=== PATIENT | male | born 1990 | race Caucasian/White ===

== ENCOUNTER 2018-05-04 16:21 | Emergency (ER) | payer OTHER ==
--- NOTE | 2018-05-04 17:07 | EDM.PDOC ---
ED HPI GENERAL MEDICAL PROBLEM - General Chief Complaint: General Stated Complaint: HEAT EXHAUSTION Time Seen by Provider: 05/04/18 16:25 Source of Information: Reports: Patient History Limitations: Reports: No Limitations - History of Present Illness INITIAL COMMENTS - FREE TEXT/NARRATIVE: 27 year old male presenting with lightheadedness, dizziness and headache secondary to what he believes is heat exhaustion. Patient states he woke up around 3pm, and proceeded to go to work by walking. He states he walked for about 45 min and started to have symptoms as described above. Patient denies any N/V or any syncopal episodes. Patient denies any fevers, myalgia. Patient does believe he is dehydrated. He states he did not intake any fluids today. Headache Pain Score (Numeric/FACES): 4 - Related Data Allergies Allergy/AdvReac Type Severity Reaction Status Date / Time sertraline HCl [From Zoloft] Allergy Abdominal Verified 05/04/18 17:12 Pain Home Meds: Home Meds . [No Known Home Meds] 09/13/16 [History] Past Medical History - Past Health History Medical/Surgical History: Denies Medical/Surgical History - Infectious Disease History Infectious Disease History: Reports: Chicken Pox Social & Family History - Family History Family Medical History: Noncontributory - Caffeine Use Caffeine Use: Reports: Energy Drinks ED ROS GENERAL - Review of Systems Review Of Systems: ROS reveals no pertinent complaints other than HPI. ED EXAM, GENERAL - Physical Exam Exam: See Below Exam Limited By: No Limitations General Appearance: Alert, WD/WN, No Apparent Distress Ears: Normal External Exam Nose: Normal Inspection Throat/Mouth: Normal Inspection, Other (mild dryness of lips and oropharynx) Head: Atraumatic, Normocephalic Neck: Normal Inspection Respiratory/Chest: No Respiratory Distress, Lungs Clear, Normal Breath Sounds Cardiovascular: Normal Peripheral Pulses, Regular Rate, Rhythm GI/Abdominal: Normal Bowel Sounds, Soft, Non-Tender Back Exam: Normal Inspection Extremities: Normal Inspection, Normal Range of Motion, Non-Tender, No Pedal Edema, Normal Capillary Refill Psychiatric: Normal Affect, Normal Mood Skin Exam: Warm, Dry, Intact, Normal Color Lymphatic: No Adenopathy Course - Vital Signs Last Recorded V/S: Last Vital Signs Temp 36.9 C 05/04/18 17:09 Pulse 72 05/04/18 17:09 Resp 12 05/04/18 17:09 BP 124/77 05/04/18 17:09 Pulse Ox 97 05/04/18 17:09 Orthostatic Blood Pressure [ 122/76 Standing] Orthostatic Blood Pressure [ 118/64 Sitting] Orthostatic Blood Pressure [ 109/60 Supine] - Orders/Labs/Meds Orders: Active Orders 24 hr Category Date Time Status Orthostatic Vital Signs [RC] ASDIRECTED Care 05/04/18 17:23 Active UA W/MICROSCOPIC [URIN] Stat Lab 05/04/18 17:18 Ordered Sodium Chloride 0.9% [Saline Flush] Med 05/04/18 17:26 Active 10 ml FLUSH ASDIRECTED PRN Sodium Chloride 0.9% [Saline Flush] Med 05/04/18 17:24 Active 2.5 ml FLUSH ASDIRECTED PRN Medication Orders Sodium Chloride (Saline Flush) 2.5 ml FLUSH ASDIRECTED PRN PRN Reason: Keep Vein Open Last Admin: 05/04/18 17:30 Dose: 2.5 ml Sodium Chloride (Saline Flush) 10 ml FLUSH ASDIRECTED PRN PRN Reason: Keep Vein Open Last Admin: 05/04/18 17:30 Dose: 10 ml Labs: Laboratory Tests 05/04/18 05/04/18 05/04/18 Range/Units 17:18 17:26 17:26 WBC 8.71 (4.0-11.0) K/uL RBC 5.06 (4.50-5.90) M/uL Hgb 16.2 (13.0-17.0) g/dL Hct 45.5 (38.0-50.0) % MCV 89.9 (80.0-98.0) fL MCH 32.0 (27.0-32.0) pg MCHC 35.6 (31.0-37.0) g/dL RDW Std Deviation 40.2 (28.0-62.0) fl RDW Coeff of Aminta 12 (11.0-15.0) % Plt Count 221 (150-400) K/uL MPV 10.80 (7.40-12.00) fL Neut % (Auto) 59.0 (48.0-80.0) % Lymph % (Auto) 28.2 (16.0-40.0) % [place] % (Auto) 10.3 (0.0-15.0) % Eos % (Auto) 2.0 (0.0-7.0) % Baso % (Auto) 0.5 (0.0-1.5) % Neut # (Auto) 5.1 (1.4-5.7) K/uL Lymph # (Auto) 2.5 H (0.6-2.4) K/uL Summers # (Auto) 0.9 H (0.0-0.8) K/uL Eos # (Auto) 0.2 (0.0-0.7) K/uL Baso # (Auto) 0.0 (0.0-0.1) K/uL Nucleated RBC % 0.0 /100WBC Nucleated RBCs # 0 K/uL Sodium 140 (136-148) mmol/L Potassium 4.1 (3.5-5.1) mmol/L Chloride 105 (98-107) mmol/L Carbon Dioxide 25.8 (21.0-32.0) mmol/L BUN 11 (7.0-18.0) mg/dL Creatinine 1.0 (0.8-1.3) mg/dL Est Cr Clr Drug Dosing 97.85 mL/min Estimated GFR (MDRD) > 60.0 ml/min Glucose 99 (74-106) mg/dL Calcium 9.0 (8.5-10.1) mg/dL Total Bilirubin 0.5 (0.2-1.0) mg/dL AST 16 (15-37) IU/L ALT 19 (14-63) IU/L Alkaline Phosphatase 58 (46-116) U/L Creatine Kinase 129 (26-308) U/L Total Protein 7.7 (6.4-8.2) g/dL Albumin 4.6 (3.4-5.0) g/dL Globulin 3.1 (2.0-3.5) g/dL Albumin/Globulin Ratio 1.5 (1.3-2.8) Urine Color DARK YELLOW Urine Appearance CLEAR Urine pH 6.0 (5.0-8.0) Ur Specific [place] >= 1.030 (1.001-1.035) Urine Protein TRACE (NEGATIVE) mg/dL Urine Glucose (UA) NEGATIVE (NEGATIVE) mg/dL Urine Ketones NEGATIVE (NEGATIVE) mg/dL Urine Occult Blood TRACE-INTACT (NEGATIVE) Urine Nitrite NEGATIVE (NEGATIVE) Urine Bilirubin SMALL H (NEGATIVE) Urine Urobilinogen 0.2 (<2.0) EU/dL Ur Leukocyte Esterase NEGATIVE (NEGATIVE) Urine RBC 0-2 (0-2/HPF) Urine WBC 0-1 (0-5/HPF) Ur Epithelial Cells RARE (NONE-FEW) Urine Bacteria RARE (NEGATIVE) Urine Mucus LIGHT (NONE-MOD) Meds: Medications Generic Name Dose Route Start Last Admin Trade Name Freq PRN Reason Stop Dose Admin Sodium Chloride 2.5 ml 05/04/18 17:24 05/04/18 17:30 Saline Flush FLUSH 2.5 ml ASDIRECTED PRN Administration Keep Vein Open Sodium Chloride 10 ml 05/04/18 17:26 05/04/18 17:30 Saline Flush FLUSH 10 ml ASDIRECTED PRN Administration Keep Vein Open Discontinued Medications Generic Name Dose Route Start Last Admin Trade Name Freq PRN Reason Stop Dose Admin Sodium Chloride 1,000 mls @ 999 mls/hr 05/04/18 17:20 05/04/18 17:29 Normal Saline IV 05/04/18 18:20 999 mls/hr STAT ONE Administration - Re-Assessments/Exams Free Text/Narrative Re-Assessment/Exam: 05/04/18 18:47 UA indicated dehydration as specific gravity was elevated, likely etiology is dehydration. Rest of labs are within normal limits. Patient can be discharged after IV fluids have finished. Departure - Departure Time of Disposition: 18:30 Disposition: Home, Self-Care 01 Condition: Good Clinical Impression: Heat exhaustion, Dehydration - Discharge Information *PRESCRIPTION DRUG MONITORING PROGRAM REVIEWED*: Not Applicable *COPY OF PRESCRIPTION DRUG MONITORING REPORT IN PATIENT SUPRIYA: Not Applicable Instructions: Heat Exhaustion Information, Dehydration, Adult, [id number], Rehydration, Adult Referrals: PCP,None [Primary Care Provider] - (follow up with PCP in 2-3 days) Forms: ED Department Discharge Additional Instructions: Patient can be discharged after IV fluids have been finished. - Problem List & Annotations (1) Heat exhaustion SNOMED Code(s): 12240926 Code(s): T67.5XXA - HEAT EXHAUSTION, UNSPECIFIED, INITIAL ENCOUNTER Status : Acute Current Visit: Yes (2) Dehydration SNOMED Code(s): 17773099 Code(s): E86.0 - DEHYDRATION Status: Acute Current Visit: No - Problem List Review Problem List Initiated/Reviewed/Updated: Yes - My Orders Last 24 Hours: My Active Orders 05/04/18 17:18 UA W/MICROSCOPIC [URIN] Stat 05/04/18 17:23 Orthostatic Vital Signs [RC] ASDIRECTED 05/04/18 17:24 Sodium Chloride 0.9% [Saline Flush] 2.5 ml FLUSH ASDIRECTED PRN 05/04/18 17:26 Sodium Chloride 0.9% [Saline Flush] 10 ml FLUSH ASDIRECTED PRN - Assessment/Plan Last 24 Hours: My Active Orders 05/04/18 17:18 UA W/MICROSCOPIC [URIN] Stat 05/04/18 17:23 Orthostatic Vital Signs [RC] ASDIRECTED 05/04/18 17:24 Sodium Chloride 0.9% [Saline Flush] 2.5 ml FLUSH ASDIRECTED PRN 05/04/18 17:26 Sodium Chloride 0.9% [Saline Flush] 10 ml FLUSH ASDIRECTED PRN Assessment:: 27 year old male presenting with lightheadedness, dizziness and headache secondary to heat exhaustion; most likely etiology is dehydration. Patient will also need to have rhabdomyolysis ruled out. Plan: CBC, CMP, CK, UA for assessment of heat exhaustion. IV NS 1 L bolus for rehydration.
[2018-05-04] MEDS ORDERED: Sodium Chloride 0.9% 1,000 ML IV ONE (17:20)
[2018-05-04] MEDS ORDERED: Sodium Chloride 0.9% 2.5 ML Syringe FLUSH PRN (17:24)
[2018-05-04] MEDS ORDERED: Sodium Chloride 0.9% 10 ML Syringe FLUSH PRN (17:26)
--- NOTE | 2018-05-04 17:47 | PCM.SN ---
- Free Text/Narrative Note: This is Dr. Benoit dictating addendum note as the supervising physician on this case. I agree with history and physical in a personally evaluated the patient. Clinically he does not look dehydrated and has tacky mucosa and he doesn't feel nauseated chest pain shortness of breath or lightheaded he just feels very dry and drain. We will monitor his laboratory testing and give him IV fluids. He does state he was outside for most of the day which may have triggered the symptoms. We will disposition the patient appropriately pending those test results.
[2018-05-04 17:58] LABS: CHLORIDE,CL 105 mmol/L (98-107); SODIUM,NA 140 mmol/L (136-148)
[2018-05-04 19:05] VITALS: BP 124/68
== END 2018-05-04 19:00 | disposition home or self-care (01) ==
LOC: MW.ED 16:21
DX: T67.5XXA Heat exhaustion, unspecified, initial encounter (principal); E86.0 Dehydration; Z88.8 Allergy status to other drugs, medicaments and biological substances; X30.XXXA Exposure to excessive natural heat, initial encounter
CPT/HCPCS: 36415; 80053; 81001; 82550; 85025; 96360; 99283; J7040

== ENCOUNTER 2018-05-10 18:41 | Emergency (ER) | payer OTHER ==
[2018-05-10] MEDS ORDERED: Sodium Chloride 0.9% 10 ML Syringe FLUSH PRN (19:09)
[2018-05-10] MEDS ORDERED: Sodium Chloride 0.9% 2.5 ML Syringe FLUSH PRN (19:09)
[2018-05-10] MEDS ORDERED: Ondansetron 4 MG/2 ML SDV IVPUSH ONE (19:10)
[2018-05-10] MEDS ORDERED: Sodium Chloride 0.9% 1,000 ML IV ONE (19:10)
--- NOTE | 2018-05-10 19:15 | EDM.PDOC ---
ED HPI GENERAL MEDICAL PROBLEM - General Chief Complaint: Syncope Time Seen by Provider: 05/10/18 19:00 - History of Present Illness INITIAL COMMENTS - FREE TEXT/NARRATIVE: HISTORY AND PHYSICAL: History of present illness: The patient is a 27-year-old male with no stated medical history who presents after a syncopal event, brief, while he was at work tonight. The patient was seen here in the emergency department on May 04 where he was out in the hot weather walking and not hydrating and had sensations of feeling like he might pass out but he did not pass out. He was evaluated with labs and rehydrated and was discharged home and referred to the clinic. He did not make a clinic follow-up appointment. The patient tells me that last evening he didn' t feel quite right just felt run down and went to sleep and woke up today and had a normal morning. He got ready for work and went to work and says he has been pushing fluids. 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 Then he felt like his legs were weak and the next thing he recalls is being on the ground. The episode was brief and there was no stated abnormal motor activity. The patient says he has a little tenderness to the right cheek but no complaints of headache neck pain back pain extremity complaints facial pain chest pain or shortness of breath. He says he still has nausea but has not had vomiting. He says he is otherwise been eating and drinking normally. He currently complains of no pain anywhere as a result of the syncope and fall. He denies any focal weakness or tingling. He says this has never happened before. Review of systems: As per history of present illness and below otherwise all systems reviewed and negative. Past medical history: As per history of present illness and as reviewed below otherwise noncontributory. Surgical history: As per history of present illness and as reviewed below otherwise noncontributory. Social history: No reported history of drug or alcohol abuse. Family history: As per history of present illness and as reviewed below otherwise noncontributory. Physical exam: General: Well-developed well-nourished thin man who is nontoxic and vital signs were noted by me. He moves easily in the ED without distress. HEENT: Atraumatic except for a small area of minimal soft tissue swelling at the right zygoma without palpable bony deformity, normocephalic, pupils reactive , negative for conjunctival pallor or scleral icterus, mucous membranes moist, throat clear, neck supple, nontender, trachea midline. There are no palpable facial bony deformities, teeth and bite are intact, there are no midline step- offs tenderness defects of the cervical spine and no scalp tenderness defects or deformities. There is no cervical adenopathy or rigidity. Lungs: Clear to auscultation, breath sounds equal bilaterally, chest nontender. Heart: S1S2, regular rate and rhythm no overt murmurs Abdomen: Soft, nondistended, nontender. Negative for masses or hepatosplenomegaly. Negative for costovertebral tenderness. Normoactive bowel sounds Pelvis: Stable nontender. Genitourinary: Deferred. Rectal: Deferred. Extremities: Atraumatic full range of motion without defects or deficits, negative for cords or calf pain. Neurovascular unremarkable. Neuro: Awake, alert, oriented. Cranial nerves II through XII unremarkable. Cerebellum unremarkable. Motor and sensory unremarkable throughout. Exam nonfocal. Back: There are no midline step-offs tenderness defects of the thoracic or lumbar spine no posterior rib or posterior pelvis tenderness and no visible evidence of any soft tissue injuries such as erythema ecchymosis or abrasions. Diagnostics: EKG CBC CMP troponin TSH alcohol level UA UDS magnesium level CPK CT scan of the head chest x-ray orthostatic vitals Therapeutics: IV O2 monitor IV fluids Zofran Patient looks and feels much improved. He has had no symptomatology here. We have discussed testing results and I have advised him for observation admission and he declines at this time. He would prefer to follow-up as an outpatient and do an outpatient Holter and any other testing that needs to be performed. I've advised him of my concerns and of the risks and he accepts those. He said he will return if the symptoms return. Impression: Syncopal event Definitive disposition and diagnosis as appropriate pending reevaluation and review of above. - Related Data Allergies Allergy/AdvReac Type Severity Reaction Status Date / Time sertraline HCl [From Zoloft] Allergy Abdominal Verified 05/04/18 17:12 Pain Home Meds: Home Meds . [No Known Home Meds] 09/13/16 [History] Past Medical History - Past Health History Medical/Surgical History: Denies Medical/Surgical History - Infectious Disease History Infectious Disease History: Reports: Chicken Pox Social & Family History - Family History Family Medical History: Noncontributory - Tobacco Use Smoking Status *Q: Current Every Day Smoker Years of Tobacco use: 14 Packs/Tins Daily: 0.5 - Caffeine Use Caffeine Use: Reports: Energy Drinks ED ROS GENERAL - Review of Systems Review Of Systems: ROS reveals no pertinent complaints other than HPI. ED EXAM, GENERAL - Physical Exam Exam: See Below (see dictation) Course - Vital Signs Last Recorded V/S: Last Vital Signs Temp 36.5 C 05/10/18 20:32 Pulse 55 L 05/10/18 20:32 Resp 16 05/10/18 20:32 BP 111/68 05/10/18 20:32 Pulse Ox 100 05/10/18 20:32 Orthostatic Blood Pressure [ 115/71 Standing] Orthostatic Blood Pressure [ 110/65 Sitting] Orthostatic Blood Pressure [ 111/68 Supine] - Orders/Labs/Meds Orders: Active Orders 24 hr Category Date Time Status Cardiac Monitoring [RC] . DIRECTED Care 05/10/18 19:09 Active EKG Documentation Completion [RC] STAT Care 05/10/18 19:09 Active Orthostatic Vital Signs [RC] ASDIRECTED Care 05/10/18 19:09 Active Oxygen Therapy, ED [RC] ASDIRECTED Care 05/10/18 19:09 Active Pulse Oximetry [RC] ASDIRECTED Care 05/10/18 19:09 Active Chest 1V Frontal [CR] Stat Exams 05/10/18 19:09 Taken Head wo Cont [CT] Stat Exams 05/10/18 19:09 Taken DRUG SCREEN, URINE [URCHEM] Stat Lab 05/10/18 20:06 Ordered UA W/MICROSCOPIC [URIN] Stat Lab 05/10/18 20:05 Ordered Sodium Chloride 0.9% [Saline Flush] Med 05/10/18 19:09 Active 10 ml FLUSH ASDIRECTED PRN Sodium Chloride 0.9% [Saline Flush] Med 05/10/18 19:09 Active 2.5 ml FLUSH ASDIRECTED PRN Saline Lock Insert [OM.PC] Stat Oth 05/10/18 19:09 Ordered Medication Orders Sodium Chloride (Saline Flush) 10 ml FLUSH ASDIRECTED PRN PRN Reason: Keep Vein Open Sodium Chloride (Saline Flush) 2.5 ml FLUSH ASDIRECTED PRN PRN Reason: Keep Vein Open Labs: Laboratory Tests 05/10/18 05/10/18 05/10/18 Range/Units 19:19 19:19 20:05 WBC 8.93 (4.0-11.0) K/uL RBC 4.75 (4.50-5.90) M/uL Hgb 14.8 (13.0-17.0) g/dL Hct 43.1 (38.0-50.0) % MCV 90.7 (80.0-98.0) fL MCH 31.2 (27.0-32.0) pg MCHC 34.3 (31.0-37.0) g/dL RDW Std Deviation 40.7 (28.0-62.0) fl RDW Coeff of Aminta 12 (11.0-15.0) % Plt Count 221 (150-400) K/uL MPV 10.50 (7.40-12.00) fL Neut % (Auto) 64.9 (48.0-80.0) % Lymph % (Auto) 24.3 (16.0-40.0) % [place] % (Auto) 8.5 (0.0-15.0) % Eos % (Auto) 2.0 (0.0-7.0) % Baso % (Auto) 0.3 (0.0-1.5) % Neut # (Auto) 5.8 H (1.4-5.7) K/uL Lymph # (Auto) 2.2 (0.6-2.4) K/uL [place] # (Auto) 0.8 (0.0-0.8) K/uL Eos # (Auto) 0.2 (0.0-0.7) K/uL Baso # (Auto) 0.0 (0.0-0.1) K/uL Nucleated RBC % 0.0 /100WBC Nucleated RBCs # 0 K/uL Sodium 138 (136-148) mmol/L Potassium 4.1 (3.5-5.1) mmol/L Chloride 103 (98-107) mmol/L Carbon Dioxide 27.9 (21.0-32.0) mmol/L BUN 13 (7.0-18.0) mg/dL Creatinine 1.0 (0.8-1.3) mg/dL Est Cr Clr Drug Dosing 86.18 mL/min Estimated GFR (MDRD) > 60.0 ml/min Glucose 87 (74-106) mg/dL Calcium 8.4 L (8.5-10.1) mg/dL Magnesium 2.1 (1.8-2.4) mg/dL Total Bilirubin 0.3 (0.2-1.0) mg/dL AST 15 (15-37) IU/L ALT 17 (14-63) IU/L Alkaline Phosphatase 50 (46-116) U/L Creatine Kinase 95 (26-308) U/L Troponin I < 0.050 (0.000-0.056) ng/mL Total Protein 7.1 (6.4-8.2) g/dL Albumin 4.1 (3.4-5.0) g/dL Globulin 3.0 (2.0-3.5) g/dL Albumin/Globulin Ratio 1.4 (1.3-2.8) TSH 3rd Generation 0.88 (0.36-3.74) uIU/mL Urine Color YELLOW Urine Appearance CLEAR Urine pH 6.5 (5.0-8.0) Ur Specific [place] 1.010 (1.001-1.035) Urine Protein NEGATIVE (NEGATIVE) mg/dL Urine Glucose (UA) NEGATIVE (NEGATIVE) mg/dL Urine Ketones NEGATIVE (NEGATIVE) mg/dL Urine Occult Blood NEGATIVE (NEGATIVE) Urine Nitrite NEGATIVE (NEGATIVE) Urine Bilirubin NEGATIVE (NEGATIVE) Urine Urobilinogen 0.2 (<2.0) EU/dL Ur Leukocyte Esterase NEGATIVE (NEGATIVE) Urine RBC NONE SEEN (0-2/HPF) Urine WBC 0-1 (0-5/HPF) Ur Epithelial Cells RARE (NONE-FEW) Amorphous Sediment RARE (NEGATIVE) Urine Bacteria RARE (NEGATIVE) Urine Opiates Screen (NEGATIVE) Ur Oxycodone Screen (NEGATIVE) Urine Methadone Screen (NEGATIVE) Ur Barbiturates Screen (NEGATIVE) Ur Phencyclidine Scrn (NEGATIVE) Ur Amphetamine Screen (NEGATIVE) U Methamphetamines Scrn (NEGATIVE) U Benzodiazepines Scrn (NEGATIVE) U Cocaine Metab Screen (NEGATIVE) U Marijuana (THC) Screen (NEGATIVE) Ethyl Alcohol < 3.0 mg/dL 05/10/18 Range/Units 20:06 WBC (4.0-11.0) K/uL RBC (4.50-5.90) M/uL Hgb (13.0-17.0) g/dL Hct (38.0-50.0) % MCV (80.0-98.0) fL MCH (27.0-32.0) pg MCHC (31.0-37.0) g/dL RDW Std Deviation (28.0-62.0) fl RDW Coeff of Aminta (11.0-15.0) % Plt Count (150-400) K/uL MPV (7.40-12.00) fL Neut % (Auto) (48.0-80.0) % Lymph % (Auto) (16.0-40.0) % [place] % (Auto) (0.0-15.0) % Eos % (Auto) (0.0-7.0) % Baso % (Auto) (0.0-1.5) % Neut # (Auto) (1.4-5.7) K/uL Lymph # (Auto) (0.6-2.4) K/uL [place] # (Auto) (0.0-0.8) K/uL Eos # (Auto) (0.0-0.7) K/uL Baso # (Auto) (0.0-0.1) K/uL Nucleated RBC % /100WBC Nucleated RBCs # K/uL Sodium (136-148) mmol/L Potassium (3.5-5.1) mmol/L Chloride (98-107) mmol/L Carbon Dioxide (21.0-32.0) mmol/L BUN (7.0-18.0) mg/dL Creatinine (0.8-1.3) mg/dL Est Cr Clr Drug Dosing mL/min Estimated GFR (MDRD) ml/min Glucose (74-106) mg/dL Calcium (8.5-10.1) mg/dL Magnesium (1.8-2.4) mg/dL Total Bilirubin (0.2-1.0) mg/dL AST (15-37) IU/L ALT (14-63) IU/L Alkaline Phosphatase (46-116) U/L Creatine Kinase (26-308) U/L Troponin I (0.000-0.056) ng/mL Total Protein (6.4-8.2) g/dL Albumin (3.4-5.0) g/dL Globulin (2.0-3.5) g/dL Albumin/Globulin Ratio (1.3-2.8) TSH 3rd Generation (0.36-3.74) uIU/mL Urine Color Urine Appearance Urine pH (5.0-8.0) Ur Specific [place] (1.001-1.035) Urine Protein (NEGATIVE) mg/dL Urine Glucose (UA) (NEGATIVE) mg/dL Urine Ketones (NEGATIVE) mg/dL Urine Occult Blood (NEGATIVE) Urine Nitrite (NEGATIVE) Urine Bilirubin (NEGATIVE) Urine Urobilinogen (<2.0) EU/dL Ur Leukocyte Esterase (NEGATIVE) Urine RBC (0-2/HPF) Urine WBC (0-5/HPF) Ur Epithelial Cells (NONE-FEW) Amorphous Sediment (NEGATIVE) Urine Bacteria (NEGATIVE) Urine Opiates Screen NEGATIVE (NEGATIVE) Ur Oxycodone Screen NEGATIVE (NEGATIVE) Urine Methadone Screen NEGATIVE (NEGATIVE) Ur Barbiturates Screen NEGATIVE (NEGATIVE) Ur Phencyclidine Scrn NEGATIVE (NEGATIVE) Ur Amphetamine Screen NEGATIVE (NEGATIVE) U Methamphetamines Scrn NEGATIVE (NEGATIVE) U Benzodiazepines Scrn NEGATIVE (NEGATIVE) U Cocaine Metab Screen NEGATIVE (NEGATIVE) U Marijuana (THC) Screen NEGATIVE (NEGATIVE) Ethyl Alcohol mg/dL Meds: Medications Generic Name Dose Route Start Last Admin Trade Name Freq PRN Reason Stop Dose Admin Sodium Chloride 10 ml 05/10/18 19:09 Saline Flush FLUSH ASDIRECTED PRN Keep Vein Open Sodium Chloride 2.5 ml 05/10/18 19:09 Saline Flush FLUSH ASDIRECTED PRN Keep Vein Open Discontinued Medications Generic Name Dose Route Start Last Admin Trade Name Freq PRN Reason Stop Dose Admin Sodium Chloride 1,000 mls @ 999 mls/hr 05/10/18 19:10 05/10/18 19:17 Normal Saline IV 05/10/18 20:10 999 mls/hr STAT ONE Administration Ondansetron HCl 4 mg 05/10/18 19:10 05/10/18 19:18 Zofran IVPUSH 05/10/18 19:11 4 mg ONETIME ONE Administration Departure - Departure Time of Disposition: 20:34 Disposition: Home, Self-Care 01 Condition: Good Clinical Impression: Syncope Qualifiers: Syncope type: unspecified Qualified Code(s): R55 - Syncope and collapse - Discharge Information Referrals: PCP,None [Primary Care Provider] - Forms: ED Department Discharge Additional Instructions: The following information is given to patients seen in the emergency department who are being discharged to home. This information is to outline your options for follow-up care. We provide all patients seen in our emergency department with a follow-up referral. The need for follow-up, as well as the timing and circumstances, are variable depending upon the specifics of your emergency department visit. If you don't have a primary care physician on staff, we will provide you with a referral. We always advise you to contact your personal physician following an emergency department visit to inform them of the circumstance of the visit and for follow-up with them and/or the need for any referrals to a consulting specialist. The emergency department will also refer you to a specialist when appropriate. This referral assures that you have the opportunity for followup care with a specialist. All of these measure are taken in an effort to provide you with optimal care, which includes your followup. Under all circumstances we always encourage you to contact your private physician who remains a resource for coordinating your care. When calling for followup care, please make the office aware that this follow-up is from your recent emergency room visit. If for any reason you are refused follow-up, please contact the [facility] emergency department at and ask to speak to the emergency department charge nurse. [facility] Primary care- Internal Medicine and Family [address] [address] Please call the clinic in the morning at 8 AM to schedule a follow-up appointment as we discussed. He will need further testing to determine the cause of today's events. Push hydration and avoid caffeinated products. Return to ER as needed and as discussed. - My Orders Last 24 Hours: My Active Orders 05/10/18 19:09 Cardiac Monitoring [RC] . DIRECTED EKG Documentation Completion [RC] STAT Orthostatic Vital Signs [RC] ASDIRECTED Oxygen Therapy, ED [RC] ASDIRECTED Pulse Oximetry [RC] ASDIRECTED Chest 1V Frontal [CR] Stat Head wo Cont [CT] Stat Sodium Chloride 0.9% [Saline Flush] 10 ml FLUSH ASDIRECTED PRN Sodium Chloride 0.9% [Saline Flush] 2.5 ml FLUSH ASDIRECTED PRN Saline Lock Insert [OM.PC] Stat 05/10/18 20:05 UA W/MICROSCOPIC [URIN] Stat 05/10/18 20:06 DRUG SCREEN, URINE [URCHEM] Stat - Assessment/Plan Last 24 Hours: My Active Orders 05/10/18 19:09 Cardiac Monitoring [RC] . DIRECTED EKG Documentation Completion [RC] STAT Orthostatic Vital Signs [RC] ASDIRECTED Oxygen Therapy, ED [RC] ASDIRECTED Pulse Oximetry [RC] ASDIRECTED Chest 1V Frontal [CR] Stat Head wo Cont [CT] Stat Sodium Chloride 0.9% [Saline Flush] 10 ml FLUSH ASDIRECTED PRN Sodium Chloride 0.9% [Saline Flush] 2.5 ml FLUSH ASDIRECTED PRN Saline Lock Insert [OM.PC] Stat 05/10/18 20:05 UA W/MICROSCOPIC [URIN] Stat 05/10/18 20:06 DRUG SCREEN, URINE [URCHEM] Stat
[2018-05-10 19:49] LABS: CHLORIDE,CL 103 mmol/L (98-107); SODIUM,NA 138 mmol/L (136-148)
[2018-05-10 20:32] VITALS: BP 111/68
--- NOTE | 2018-05-11 16:50 | CT ---
EXAM DATE: 05/10/18 PATIENT'S AGE: 27 Patient: MILA FONTENOT Facility: [place], [place] Site . Site : 1990 Study: CT Head [id number]/16/2018 7:31:12 PM Ordering Physician: Cy Acuña Final Report: INDICATION: Syncope TECHNIQUE: CT Head without i.v. contrast. CONTRAST: None COMPARISON: 04/25/15 FINDINGS: CSF spaces: The ventricles are normal for age. Brain: No evidence of mass, acute infarction or hemorrhage is seen. No mass- effect or midline shift is seen. The brain parenchyma is otherwise normal in appearance with preservation of the dillon-white matter junction. Calvarium: The visualized paranasal sinuses are well aerated. The mastoid air cells are clear. The visualized orbits are grossly unremarkable. The calvarium is unremarkable in appearance with no fractures identified. IMPRESSION: 1. No evidence of acute infarction, intracranial hemorrhage, or mass-effect seen. Please note that all CT scans at this facility use dose modulation, iterative reconstruction, and/or weight-based dosing when appropriate to reduce radiation dose to as low as reasonably achievable. Dictated by: J Luis Caruso MD @ 05/10/2018 20:00:36 (Electronic Signature) Report Signed by Proxy. DENNIS
--- NOTE | 2018-05-11 16:50 | CR ---
EXAM DATE: 05/10/18 PATIENT'S AGE: 27 Patient: MILA FONTENOT Facility: [place], [place] Site . Site : 1990 Study: XRay Chest [id number]/16/2018 7:36:21 PM Ordering Physician: Cy Acuña Final Report: INDICATION: syncope, chest heaviness TECHNIQUE: Chest 1 view COMPARISON: November 11, 2016 FINDINGS: Cardiovascular and mediastinum: Heart size and vasculature are normal in caliber and appearance. Mediastinum is within normal limits. Lungs and pleural space: No focal consolidation. No sign of pleural effusion. No pneumothorax. Bones and soft tissues: No significant findings. IMPRESSION: No acute cardiopulmonary disease. Dictated by Noah Sy MD @ 05/10/2018 8:05:25 PM Dictated by: Noah Sy MD @ 05/10/2018 20:05:38 (Electronic Signature) Report Signed by Proxy. [email or web address]
== END 2018-05-10 20:43 | disposition home or self-care (01) ==
LOC: MW.ED 18:41
DX: R55 Syncope and collapse (principal); F17.210 Nicotine dependence, cigarettes, uncomplicated; Z88.8 Allergy status to other drugs, medicaments and biological substances
CPT/HCPCS: 36415; 70450; 71045; 80053; 80305; 81001; 82550; 83735; 84443; 84484; 85025; 93005; 96361; 96374; 99285; G0480; J2405; J7040

== ENCOUNTER 2021-01-21 14:16 | Emergency (ER) | payer SELFPAY ==
--- NOTE | 2021-01-21 15:23 | CR ---
Indication: Chest Pain Comparison: Single-view chest May 10, 2018 Technique: Single AP view chest Findings: There is no focal consolidation, effusion, or pneumothorax. The cardiomediastinal silhouette is within normal limits. The bony thorax is grossly intact. Impression: No acute cardiopulmonary abnormality. Dictated by Emery Martin MD @ Jan 21 2021 3:20PM Signed by Dr. Emery Martin @ Jan 21 2021 3:22PM
--- NOTE | 2021-01-21 16:11 | EDM.PDOC ---
ED HPI GENERAL MEDICAL PROBLEM - General Chief Complaint: Chest Pain Stated Complaint: CHEST PAIN Time Seen by Provider: 01/21/21 14:24 - History of Present Illness INITIAL COMMENTS - FREE TEXT/NARRATIVE: CHIEF COMPLAINT(S): Shooting pain down arm HISTORY OF PRESENT ILLNESS: This is a 30-year-old man with a past medical history of anxiety who comes to the emergency department with a chief complaint of shooting pain down arm. The patient states that prior to arrival he started to experience shooting pain down his both arms associated with chest pain which he describes as across the center of his chest rated 7 out of 10. He states that he did feel little short of breath when his chest pain started and describes the pain as a pulsating shock. He states that now since being in the emergency department is improved to 5 out of 10. He states that there was no diaphoresis, nausea, vomiting or syncope. He denies any history of CAD, CHF, family history of early onset CAD or history of sudden onset at young age. He states that he does not have any history of PE or DVT and denies any recent travel or surgery. 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 He states that this happened while he was at work lifting heavy stuff and they took him to an occupational health where they told him that he may be having a heart attack and told him to come to the emergency department. In regards to his chest pain he denies any radiation of the pain he denies any aggravating or relieving factors. He has not yet tried any medications. REVIEW OF SYSTEMS: Constitutional: Denies fever, chills. Eyes: Denies eye pain Ears, Nose, Mouth, & Throat: Denies earache Cardiovascular: Positive for chest pain Respiratory: Positive shortness of breath Gastrointestinal: Denies Nausea, vomiting, diarrhea, hematochezia. Genitourinary: Denies hematuria Skin:Denies a rash MSK: Positive for shooting pain down bilateral arms Neurological: Denies blurred vision, numbness, tingling, weakness Psychiatric: Positive for anxiety PAST MEDICAL HISTORY: As per history of present illness and as reviewed below otherwise noncontributory. SURGICAL HISTORY: As per history of present illness and as reviewed below otherwise noncontributory. SOCIAL HISTORY: As per history of present illness and as reviewed below otherwise noncontributory. FAMILY HISTORY: As per history of present illness and as reviewed below otherwise noncontributory. EXAMINATION OF ORGAN SYSTEMS/BODY AREAS: Constitutional: Blood pressure is 164/93, heart rate was 82, respiratory 20 with an oxygen saturation 98% on room air. Temperature 36 point General: Anxious appearing young man who is in no acute distress Psychiatric: Appears anxious but is cooperative. Eyes: No scleral icterus or conjunctival erythema pupils are equal round and reactive to light. Extraocular movements intact. No vertical horizontal nystagmus. ENMT: Moist mucous membranes. No pharyngeal erythema Cardiovascular: Regular, rate, and rhythm. No gallops, murmurs, or rubs. Bilateral upper extremity pulses symmetric and intact. No peripheral edema. No JVD. No chest wall tenderness is present. Respiratory: Lungs clear to auscultation bilaterally. No wheezes, rales, or rhonchi. Gastrointestinal: Soft, non-tender, non-distended. Normoactive bowel sounds Genitourinary: No suprapubic tenderness Musculoskeletal: Normal range of motion. No midline cervical, thoracic, or lumbar tenderness. Patient has full range of motion at the neck without any exacerbation of symptoms Skin: No lesions or abrasions. Neurological: AOx4. CN grossly intact. Strength 5/5 in bilateral upper and lower extremity. Sensation is intact bilaterally in upper and lower extremity. Gait appears normal. Finger to nose, heel to tesfaye, rapid alternating movements intact. MEDICAL DECISION MAKING AND COURSE IN THE ED WITH INTERPRETATION/REVIEW OF DIAGNOSTIC STUDIES: This is a 30-year-old man with a past medical history of anxiety who comes to the emergency department with acute palpitating shock across the center of his chest associated with shortness of breath and shooting pain down his arms who is improving. At this time the patient has some mild hypertension but is not tachycardic. He is low risk for ACS. We did obtain an EKG which did not reveal any acute signs of ischemia. We will obtain a chest x- ray for further evaluation. I do believe is secondary to acute anxiety versus panic attack. We will reevaluate the patient for improvement. Time: 1424 Twelve-lead EKG interpreted by myself. Normal sinus rhythm at a rate of 83 beats per minute. Normal axis. VT interval is 147ms. QRS duration is 79ms. ST segments are normal without elevations or depressions. No T wave inversions Q wave in lead V2. Hypertrophy not noted. No changes demonstrated from prior EKG dated 05/10/2018. Interpretation: Sinus rhythm The radiological images were viewed by myself along with reading the report from the radiologist. Chest x-ray did not reveal any acute cardiopulmonary process. On reevaluation the patient stated that he had significant improvement without any intervention. At this time I did discuss with him I do believe is secondary to anxiety. He states that while sitting in the emergency department he started to believe that to as he has had similar episodes in the past. I did discuss them he should follow-up with his primary care physician or follow-up with a psychiatrist for further evaluation. We did provide him with strict return precautions and contact information. He is amenable to discharge and had no further questions DISPOSITION: The patient was discharged home in stable condition. The patient will follow up with primary care physician or psychiatry within 2 to 3 days CONDITION: Fair PROCEDURES: None FINAL IMPRESSION(S)/DIAGNOSES: 1. Acute chest pain likely secondary to anxiety versus panic attack Javed Manzanares M.D. Chest Pain Score (Numeric/FACES): 7 - Related Data Allergies Allergy/AdvReac Type Severity Reaction Status Date / Time sertraline HCl [From Zoloft] Allergy Abdominal Verified 01/21/21 14:18 Pain Home Meds: Home Meds . [No Known Home Meds] 09/13/16 [History] Past Medical History - Past Health History Medical/Surgical History: Denies Medical/Surgical History HEENT History: Reports: Impaired Vision, Other (See Below) Other HEENT History: wears glasses Cardiovascular History: Reports: None Respiratory History: Reports: None Gastrointestinal History: Reports: None Genitourinary History: Reports: None Musculoskeletal History: Reports: None Neurological History: Reports: None Psychiatric History: Reports: None Endocrine/Metabolic History: Reports: None Hematologic History: Reports: None Oncologic (Cancer) History: Reports: None Dermatologic History: Reports: None - Infectious Disease History Infectious Disease History: Reports: Chicken Pox - Past Surgical History HEENT Surgical History: Reports: None Respiratory Surgical History: Reports: None Male Surgical History: Reports: None Social & Family History - Family History Family Medical History: No Pertinent Family History - Tobacco Use Tobacco Use Status *Q: Current Every Day Tobacco User Years of Tobacco use: 16 Packs/Tins Daily: 0.5 - Caffeine Use Caffeine Use: Reports: Energy Drinks - Recreational Drug Use Recreational Drug Use: No ED ROS GENERAL - Review of Systems Review Of Systems: See Below ED EXAM, GENERAL - Physical Exam Exam: See Below Course - Vital Signs Last Recorded V/S: Last Vital Signs Temp 37.2 C 01/21/21 16:23 Pulse 76 01/21/21 16:23 Resp 16 01/21/21 16:23 BP 126/76 01/21/21 16:23 Pulse Ox 97 01/21/21 16:23 Departure - Departure Time of Disposition: 16:11 Disposition: Home, Self-Care 01 Condition: Fair Clinical Impression: Atypical chest pain, Panic attack - Discharge Information *PRESCRIPTION DRUG MONITORING PROGRAM REVIEWED*: No *COPY OF PRESCRIPTION DRUG MONITORING REPORT IN PATIENT SUPRIYA: No Instructions: Panic Attack, [id number], Nonspecific Chest Pain, Adult, [id number] Referrals: PCP,None [Primary Care Provider] - Forms: ED Department Discharge Additional Instructions: Your evaluated today on an emergent basis. At this time I do believe your symptoms are likely secondary to anxiety which you have dealt with in the past. This could be a panic attack. I do recommend that you follow-up with primary care physician/psychiatry for further management. In addition given that she do heavy labor this could be musculoskeletal strain/pain. I do recommend the use of Tylenol and Motrin and the use of ice as we discussed. If you have any worsening chest pain, passing out please return to the emergency department. Please use: Tylenol 500-1000mg every 6 hours (DO NOT TAKE MORE THAN 4000mg in 1 day) Ibuprofen 400mg every 6 hours (Take with food as it can cause ulcers, GI upset) Example schedule: 8:00 AM (Tylenol 500-1000mg) 11:00 AM (Ibuprofen 400mg) 2:00 PM (Tylenol 500-1000mg) 5:00 PM (Ibuprofen 400mg) In addition to Tylenol and Motrin you may use over the counter creams such as Voltaren Cream or Lidocaine Cream (Lidoderm) as needed 4 times a day for symptomatic relief. Ice the area 20 minutes 4 times per day [facility] [address] [place] [id number] [address] [place] [address] The patient is informed of any results of their evaluation and diagnostic workup and all questions are answered. They are given discharge instructions and return precautions. The patient is stable for discharge. The patient states they understand and agree with the plan and that they will return if their symptoms get worse or if they have any new concerns. The following information is given to patients seen in the emergency department who are being discharged to home. This information is to outline your options for follow-up care. We provide all patients seen in our emergency department with a follow-up referral. The need for follow-up, as well as the timing and circumstances, are variable depending upon the specifics of your emergency department visit. If you don't have a primary care physician on staff, we will provide you with a referral. We always advise you to contact your personal physician following an emergency department visit to inform them of the circumstance of the visit and for follow-up with them and/or the need for any referrals to a consulting specialist. The emergency department will also refer you to a specialist when appropriate. This referral assures that you have the opportunity for follow-up care with a specialist. All of these measure are taken in an effort to provide you with optimal care, which includes your follow-up. Under all circumstances we always encourage you to contact your private physician who remains a resource for coordinating your care. When calling for follow-up care, please make the office aware that this follow-up is from your recent emergency room visit. If for any reason you are refused follow-up, please contact the [facility] Emergency Department at and asked to speak to the emergency department charge nurse. Sepsis Event Note (ED) - Evaluation Sepsis Screening Result: No Definite Risk
[2021-01-21 16:24] VITALS: BP 126/76; PULSE 76
== END 2021-01-21 16:24 | disposition home or self-care (01) ==
LOC: MW.ED 14:16
DX: F41.0 Panic disorder [episodic paroxysmal anxiety] (principal); R07.89 Other chest pain; Z72.0 Tobacco use; Z88.8 Allergy status to other drugs, medicaments and biological substances
CPT/HCPCS: 71045; 71045-26; 93005; 93010; 99283; 99285-25